=== PATIENT | female | born 2000 | race Caucasian/White ===

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

== ENCOUNTER 2022-12-17 22:33 | Emergency (ER) | payer MEDICAID, SELFPAY ==
[2022-12-17 22:33] VITALS: BP 117/72; PULSE 83; RESP 16; TEMP 36.1; O2SAT 99; BMI 27.8
--- NOTE | 2022-12-17 22:38 | RAD_ITS ---
INDICATION: PAIN EXAMINATION/TECHNIQUE: X-RAY - RIGHT XR Hip Unilateral with Pelvis when performed; 2-3 Views 3 VIEWS COMPARISON: None. FINDINGS: SOFT TISSUES: No soft tissue swelling or gas. No radiopaque foreign body. BONES/JOINTS: No acute fracture or malalignment. Preservation of the joint space and no degenerative bony proliferative changes. No sclerotic or destructive changes observed. RAD/HIP, UNI W/ Pelvis 2-3 Views IMPRESSION: Negative. Electronically Signed: Nima Gil DO at 22:59 EDT ,
[2022-12-18] MEDS: predniSONE 20 MG Tablet 60 MG PO (00:02)
--- NOTE | 2022-12-18 00:04 | EX.ED.DYSGE1 ---
HPI History of Present Illness Chief Complaint: Lower Extremity Injury Informant: patient Narrative Narrative: Worsening nontraumatic right gluteal hip pain since 2 days ago. No loss of bowel or bladder control. On and off symptoms past year has seen ERs in the past last time 6 months ago toe sciatica. Does not have a PCP. Was put on muscle relaxers that does not work. She had couple tabs left. No diabetes history. No patent down in the legs however goes across her thigh. No urinary symptoms. Pain worse with ambulation and sitting directly on it. Denies back pain. Prior similar symptoms: Yes PFSH PFSH Home Medications vits,calcium no.78-iron fumarate-folic acid 29 mg-1 mg tablet 1 tab PO DAILY 01/17/20 [History Last Taken 01/16/20 09:00] Albuterol Inhaler 2 puff inhalation PRN asthma 01/18/20 [History Last Taken Unknown] Vitamin B-6 1 tab PO DAILY Check with primary doctor 01/18/20 [History Last Taken 01/16/20] ibuprofen 600 mg tablet 600 mg PO Q6H PRN PRN Pain Score 1-3/10 #30 tabs 01/20/20 [Rx Last Taken Unknown] prednisone 20 mg tablet 60 mg PO DAILY #15 TABLETS 12/18/22 [Rx Last Taken Unknown] Allergy/AdvReac Type Severity Reaction Status Date / Time amoxicillin Allergy Hives Verified 12/17/22 22:33 Penicillins Allergy Hives Verified 12/17/22 22:33 Social History Smoking Status: Current every day smoker tobacco type: smokeless tobacco ROS ROS ED Constitutional Constitutional ED: Denies chills, fever(s) or sweats Eyes Eyes: Denies change in vision ENT ENT ED: Denies dysphagia or sore throat Cardiovascular Cardiovascular: Denies chest pain, leg edema, palpitations or racing heartbeat Respiratory/Chest Respiratory/Chest: Denies cough, dyspnea or dyspnea on exertion Gastrointestinal Gastrointestinal: Denies abdominal pain, diarrhea, nausea or vomiting Genitourinary Genitourinary ED: Denies dysuria, hematuria or urinary frequency Musculoskeletal Musculoskeletal: Reports extremity pain; Denies back pain or neck pain Integumentary Denies rash or wounds Neurologic Neurologic: Denies headache(s), paresthesias or weakness EXAM Physical Exam Const Vital Signs: 12/17/22 22:33 Temperature 97 F L Temperature Source Temporal Pulse Rate 83 Respiratory Rate 16 Blood Pressure 117/72 Blood Pressure Mean 87 Pulse Ox 99 Positive well nourished and well developed General Appearance ED: well developed and NAD HEENT Reports moist mucous membranes normocephalic and atraumatic Eyes PERRL, EOMs intact bilaterally and conjunctivae normal General Eye ED: Yes normal appearance of both eyes Neck no lymphadenopathy and supple General: Negative for tenderness Chest Wall Chest: Negative for tenderness Resp normal respiratory effort and normal air movement Effort and Inspection: symmetric chest movement; Negative for respiratory distress Cardio regular rate, regular rhythm and no murmurs Peripheral Pulses: pulses 2+ throughout GI normal to inspection, nondistended, normoactive bowel sounds and non-tender Palpation: Negative for guarding or rebound tenderness present Back/Spine no CVA tenderness and no thoracic nor lumbar tenderness Extremity Extremity Narrative: RLE: TTP gluteal/piriformis. pain with hip adduction. straight leg negative. General Extremety ED: Negative for edema or tenderness General Extremity: Negative for edema Neuro oriented x3 and no sensory deficits noted Sensorium / Orientation: awake and alert Skin no rashes or lesions noted and no wounds MDM MDM MDM Narrative Medical decision making narrative: Interventions / MDM: Differential diagnosis: Hip pain, sciatica, piriformis syndrome Diagnosis considered but do not suspect: Negative for cauda equina symptoms. My EKG interpretation: N/A Imaging independently reviewed and interpreted by myself: 3 view right hip and pelvis: No fracture or dislocation External documents reviewed: N/A Test considered but not ordered:N/A ED course: X-ray obtained through triage reviewed and negative. Discussed with the patient sciatica symptoms with symptoms at the piriformis. No cauda equina symptoms. She is nondiabetic. Patient started on steroids help with symptoms she is given follow-up with PCP as an outpatient. She is able to ambulate with no difficulties. All questions were answered. Re-evaluation: stable Disposition discussed with patient/family/significant other: Patient Case discussed with consulting clinician: N/A This note was generated with GVISP 1 dictation software. It may contain incorrect words, spelling, and punctuation that were not noted in checking the note before signing. Radiography Diagnostic Testing: Clinical Impression(s) from Imaging Studies Hip/Pelvis X-Ray 06/19/23 22:38 IMPRESSION: Negative. Electronically Signed: Nima lEDO quiana at 22:59 EDT , Discharge Plan Triage Chief Complaint: Lower Extremity Injury ED Provider: Rommel Ellison Dx/Rx/DC Orders Clinical Impression: Right sided sciatica, Hip pain, right Instructions: ED Sciatica Prescriptions: New prednisone 20 mg tablet 60 mg PO DAILY Qty: 15 0RF No Action vit,[id number] 1 TABLET tablet 1 tab PO DAILY Vitamin B-6 1 tab PO DAILY Label Comments: pt unsure of dosage Albuterol Inhaler 2 puff inhalation PRN (Reason: asthma ) ibuprofen 600 MG tablet 600 mg PO Q6H PRN PRN (Reason: Pain Score 1-3/10) Qty: 30 0RF Primary Care Provider: Care Physician,No Primary Referrals: Ritu Tong MD [Med Staff - Machine Filler Servicer] - 1 Week Care Physician,No Primary [Primary Care Provider] - Disposition Disposition: Home, Self Care Discharge Date/Time: 12/18/22 00:05
== END 2022-12-18 00:05 | disposition home or self-care (01) ==
PROVIDERS: Emergency Provider Emergency Medicine; Visit Provider Emergency Medicine
DX: M25.551 Pain in right hip (principal); M54.31 Sciatica, right side; F17.290 Nicotine dependence, other tobacco product, uncomplicated
CPT/HCPCS: 73502; 99283

== ENCOUNTER 2023-12-02 12:48 | Emergency (ER) | payer MEDICAID, SELFPAY ==
[2023-12-02 12:49] VITALS: BP 102/82; PULSE 105; RESP 18; TEMP 35.5; O2SAT 100; BMI 23.2
[2023-12-02] MEDS: Acetaminophen 325 MG Tablet 650 MG PO (13:34)
--- NOTE | 2023-12-02 13:50 | EX.ED.DYSGE1 ---
HPI <JACQUELINE Lloyd - Last Filed: 12/02/23 14:06> History of Present Illness Chief Complaint: Sore Throat Narrative Narrative: Patient presenting today with a sore throat that she has had since this morning. She reports that she has had intermittent chills. She does have a history of strep throat and thinks this feels similar. She has had slight nausea this morning but denies any abdominal pain and vomiting. PFSH <JACQUELINE Lloyd - Last Filed: 12/02/23 14:06> PFSH Home Medications ?Medication ?Instructions ?Recorded ?Last Taken ?Type vits,calcium no.78-iron 1 tab PO DAILY 01/17/20 01/16/20 09:00 History fumarate-folic acid 29 mg-1 mg tablet Albuterol Inhaler 2 puff inhalation PRN asthma 01/18/20 Unknown History Vitamin B-6 1 tab PO DAILY Check with primary 01/18/20 01/16/20 History doctor ibuprofen 600 mg tablet 600 mg PO Q6H PRN PRN Pain Score 01/20/20 Unknown Rx 1-09/07 #30 tabs prednisone 20 mg tablet 60 mg (3 x 20 mg) PO DAILY #15 12/18/22 Unknown Rx TABLETS azithromycin 500 mg tablet 500 mg PO DAILY 5 days #5 tabs 12/02/23 Unknown Rx Allergy/AdvReac Type Severity Reaction Status Date / Time amoxicillin Allergy Hives Verified 12/17/22 22:33 Penicillins Allergy Hives Verified 12/17/22 22:33 Social History Smoking Status: Current every day smoker tobacco type: smokeless tobacco ROS <JACQUELNIE Lloyd - Last Filed: 12/02/23 14:06> ROS ED Constitutional Constitutional ED: Denies chills or fever(s) ENT ENT ED: Reports sore throat; Denies rhinorrhea Cardiovascular Cardiovascular: Denies chest pain or palpitations Respiratory/Chest Respiratory/Chest: Reports cough; Denies dyspnea Gastrointestinal Gastrointestinal: Reports nausea; Denies abdominal pain or vomiting Musculoskeletal Musculoskeletal: Denies arthralgias or myalgias Integumentary Denies rash Neurologic Neurologic: Denies weakness EXAM <JACQUELINE Lloyd - Last Filed: 12/02/23 14:06> Physical Exam Const Vital Signs: 12/02/23 12:49 12/02/23 13:53 Temperature 96 F L 97 F L Temperature Source Temporal Pulse Rate 105 H 100 Respiratory Rate 18 16 Blood Pressure 102/82 H 110/84 H Blood Pressure Mean 88 92 Pulse Ox 100 100 Oxygen Delivery Method Room Air Positive well nourished, well developed and no apparent distress General Appearance ED: well developed HEENT Reports normocephalic, head/scalp atraumatic and TM's clear HEENT Narrative: Posterior pharynx erythemic with slight tonsillar exudate on the right side, uvula midline, no trismus, no drooling, no sign of tonsillar abscess Tympanic Membrane ED: Yes TM's clear bilateral Mouth ED: Yes moist mucous membranes normal Eyes PERRL and EOMs intact bilaterally Neck full ROM and supple Chest Wall inspection of chest normal Resp normal respiratory effort and clear to auscultation bilaterally Cardio regular rate and regular rhythm GI soft to palpation, non-tender, non-distended and no masses Back/Spine normal ROM and normal to inspection Extremity normal to inspection and full ROM Neuro oriented x3, CN's II-XII intact bilaterally, moves all extremities, no focal motor deficits and no sensory deficits noted Sensorium / Orientation: awake and alert Psych mental status grossly normal and thought process normal Skin no rashes or lesions noted and no wounds <Dr. Davy Walls DO - Last Filed: 12/02/23 15:18> Physical Exam Const Vital Signs: 12/02/23 12:49 12/02/23 13:53 Temperature 96 F L 97 F L Temperature Source Temporal Pulse Rate 105 H 100 Respiratory Rate 18 16 Blood Pressure 102/82 H 110/84 H Blood Pressure Mean 88 92 Pulse Ox 100 100 Oxygen Delivery Method Room Air [facility] <JACQUELINE Lloyd - Last Filed: 12/02/23 14:06> [facility] Narrative Medical decision making narrative: Patient presenting today with a sore throat that started today. She is nontoxic-appearing and in no acute distress. She is afebrile. Posterior pharynx slightly erythemic without any signs of tonsillar abscess. She has slight exudates on the right, rapid strep was obtained and is positive. Patient will be treated with antibiotics. She was given a dose of Tylenol here. She will be discharged home in stable condition. <Dr. Davy Kavita, DO - Last Filed: 12/02/23 15:18> [facility] Narrative Medical decision making narrative: Patient presenting today with a sore throat that started today. She is nontoxic-appearing and in no acute distress. She is afebrile. Posterior pharynx slightly erythemic without any signs of tonsillar abscess. She has slight exudates on the right, rapid strep was obtained and is positive. Patient will be treated with antibiotics. She was given a dose of Tylenol here. She will be discharged home in stable condition. ED attending note: I evaluated the patient in conjunction with the ALON. I agree with his/her statements and above findings. I have personally performed a face to face assessment of the patient and have reviewed the ALON Note. I performed a substantive portion of the visit including all aspects of the following. I personally saw the patient performed chart review, physical exam, reviewed labs, imaging (if obtained), and formulated a treatment and management plan. This note was generated with [employer] dictation software. It may contain incorrect words, spelling, and punctuation that were not noted in review of the chart prior to signing. Discharge Plan Triage Chief Complaint: Sore Throat ED Midlevel Provider: Rafaela Burt ED Provider: Davy Walsl Dx/Rx/DC Orders Clinical Impression: Strep throat Instructions: ED Pharyngitis, Report Pending Prescriptions: New azithromycin 500 mg tablet 500 mg PO DAILY 5 Days Qty: 5 0RF No Action vit,[id number] 1 TABLET tablet 1 tab PO DAILY Vitamin B-6 1 tab PO DAILY Patient Comments: pt unsure of dosage Albuterol Inhaler 2 puff inhalation PRN (Reason: asthma ) ibuprofen 600 MG tablet 600 mg PO Q6H PRN PRN (Reason: Pain Score 1-3/10) Qty: 30 0RF prednisone 20 mg tablet 60 mg PO DAILY Qty: 15 0RF Primary Care Provider: Care Physician,No Primary Referrals: Care Physician,No Primary [Primary Care Provider] - Activity Restrictions/Additional Instructions: Follow-up with your PCP and return for any worsening of symptoms. Print Language: [place] Disposition Disposition: Home, Self Care Discharge Date/Time: 12/02/23 14:02
[2023-12-02 13:53] VITALS: BP 110/84; PULSE 100; RESP 16; TEMP 36.1; O2SAT 100
== END 2023-12-02 14:02 | disposition home or self-care (01) ==
PROVIDERS: Emergency Provider Emergency Medicine; Visit Provider Emergency Medicine
DX: J02.0 Streptococcal pharyngitis (principal); F17.220 Nicotine dependence, chewing tobacco, uncomplicated; Z79.899 Other long term (current) drug therapy
CPT/HCPCS: 87651; 99282